=== PATIENT | female | born 1970 | race Caucasian/White ===

== ENCOUNTER 2016-08-01 11:02 | Day surgery (SDC) | payer OTHER ==
[~2016-08-01] VITALS: Ht 154.9 cm; Wt 79.2 kg
[~2016-08-01 11:02] MED LIST: BACTRIM,SEPT1 TABLET PO; NAPROSYN500 MG PO; PYRIDIUM100 MG PO; ZANTAC150 MG PO
[2016-08-01] MEDS ORDERED: ULTRAM50 MG PO (11:53)
[2016-08-01] MEDS ORDERED: GRALISE300 MG PO (11:53)
[2016-08-01] MEDS ORDERED: AUGMENTIN875 MG PO (11:54)
[2016-08-01] MEDS ORDERED: TIZANIDINE HCL2 M1 PO (11:54)
[2016-08-01] MEDS ORDERED: NORCO 5/3251 TABLET PO (11:55)
[2016-08-01 13:10] LABS: HEMATOCRIT 38.9 % (36.0-46.0); MCH 29.9 PG (29.0-34.0); MCHC 33.7 G/DL (30.0-36.0); MCV 88.8 FL (83-99); MEAN PLAT.VOLUME 10.4 uM^3 (9.5-12.4); PLATELET COUNT 274 K/uL (156-360); RBC DIS.WIDTH-CV 13.1 % (11.8-14.6); RBC DIS.WIDTH-SD 42.1 % (39-53); RED BLOOD COUNT 4.38 M/uL (3.80-5.20); WHITE BLOOD COUNT 16.8 K/uL (4.1-10.2)
[2016-08-01 13:19] LABS: CHLORIDE 105 mEq/L (99-109); POTASSIUM 3.8 mEq/L (3.7-5.4); SODIUM 140 mEq/L (136-147)
[2016-08-01 13:21] LABS: GLUCOSE 93 mg/dL (70-99)
[2016-08-01 13:23] LABS: ANION GAP 11 MEQ/L (2-14); TOTAL BILIRUBIN 0.3 mg/dL (0.0-1.0)
[2016-08-01 13:25] LABS: ALKALINE PHOSPHATASE 65 IU/L (3-129); GFR ESTIMATE (CALCULATED) > 59 mL/min/
[2016-08-01 13:26] LABS: UREA NITROGEN (BUN) 12 mg/dL (9-23)
[2016-08-01] MEDS ORDERED: ZANTAC150 MG PO (16:31)
[2016-08-01] MEDS ORDERED: DAILY VITE1 EAC1 PO (16:32)
[2016-08-01 17:36] LABS: QUANTITATIVE HCG < 4.0 MIU/ML
[2016-08-01 20:31] VITALS: BP 109/55
[2016-08-01 23:59] VITALS: BP 113/58
[2016-08-02 03:18] VITALS: BP 101/78
[2016-08-02 07:10] VITALS: BP 89/50
[2016-08-02 07:38] LABS: HEMATOCRIT 34.6 % (36.0-46.0); MCH 29.7 PG (29.0-34.0); MCHC 32.7 G/DL (30.0-36.0); MCV 90.8 FL (83-99); MEAN PLAT.VOLUME 10.8 uM^3 (9.5-12.4); PLATELET COUNT 266 K/uL (156-360); RBC DIS.WIDTH-CV 13.5 % (11.8-14.6); RBC DIS.WIDTH-SD 44.7 % (39-53); RED BLOOD COUNT 3.81 M/uL (3.80-5.20); WHITE BLOOD COUNT 14.4 K/uL (4.1-10.2)
[2016-08-02 10:00] VITALS: BP 130/63
[2016-08-02] MEDS ORDERED: BACTRIM,SEPT1 TABLET PO (10:44)
[2016-08-02] MEDS ORDERED: ZOFRAN ODT4 MG PO (10:44)
[2016-08-02] MEDS ORDERED: NORCO 5/3251 TABLET PO (10:44)
[2016-08-02] MEDS ORDERED: COLACE100 MG PO (10:44)
== END 2016-08-02 13:37 | disposition home or self-care (01) ==
LOC: EME 11:02 → SDC 17:05 → 2SOUTH 18:39 → 2EAST 18:39 → 2SOUTH 18:39 → 2EAST 20:44
PROVIDERS: Nurse Practitioner Family; Surgery
PROC: 0D9P0ZZ Drainage of Rectum, Open Approach (ICD-10-PCS; principal; 2016-08-01)
DX: K61.1 Rectal abscess (principal); M54.9 Dorsalgia, unspecified; F17.200 Nicotine dependence, unspecified, uncomplicated
CPT/HCPCS: 72193; 80053; 83605; 84702; 85027; 87040; 87070; 87075; 87076; 87185; 87205; 99281; 99285; G0378; J1100; J1170; J2175; J2250; J2270; J2405; J2543; J3010; J7050; J7120